=== PATIENT | female | born 1990 | race Caucasian/White ===

== ENCOUNTER 2020-08-11 09:56 | Emergency (ER) | payer OTHER ==
[~2020-08-11] VITALS: Ht 172.7 cm; Wt 77.3 kg
[~2020-08-11 09:56] MED LIST: AMOXICILLIN 50500 MG PO; BIRTH CONTROL; NO HOME MEDICATIONS
[2020-08-11 09:59] VITALS: TEMP 96.4
[2020-08-11 10:33] LABS: COLLECTION METHOD CLEAN CATCH
[2020-08-11 10:37] LABS: BASO % 0.4 % (0.0-2.0); EOS # 0.1 (0.0-0.7); EOS % 0.7 % (0-4.0); GRAN # 7.2 (1.4-6.5); GRAN % 71.2 % (42.2-75.2); HEMATOCRIT 41.2 % (37.0-47.0); HEMOGLOBIN 14.2 g/dl (12.5-16.0); LYMPH # 2.2 (1.2-3.4); LYMPH % 21.4 % (20.0-51.0); MEAN CELL VOLUME 92 fl (80.0-100.0); MEAN CORPUSCULAR HEMOGLOBIN 32 pg (27.0-31.0); MEAN CORPUSCULAR HGB CONC 35 g/dl (33.0-37.0); MEAN PLATELET VOLUME 10.3 fl (7.4-10.4); MONO # 0.6 (0.1-0.6); PLATELET COUNT 247 K/mm3 (130-400); RED BLOOD COUNT 4.48 M/mm3 (4.10-5.30)
[2020-08-11 10:50] LABS: ALANINE AMINOTRANSFERASE 13 U/L (4-34); ALBUMIN 4.9 gm/dL (3.5-5.0); ALKALINE PHOSPHATASE 99 U/L (50-136); ANION GAP 14 mmol/L (7-16); AST,SGOT 30 U/L (15-37); BILIRUBIN,TOTAL 1.1 mg/dL (0.0-1.0); BLOOD UREA NITROGEN 17 mg/dL (7-17); CALCIUM 9.4 mg/dL (8.4-10.2); CARBON DIOXIDE 21 mmol/L (22-30); CHLORIDE 102 mmol/L (98-107); CREATININE, serum 0.93 (0.52-1.25); GLUCOSE 155 mg/dL (74-106); LIPASE 45 U/L (23-300); POTASSIUM 3.5 mmol/L (3.4-5.0); SODIUM 137 mmol/L (137-145); TOTAL PROTEIN 8.4 gm/dL (6.4-8.2)
[2020-08-11 10:57] LABS: MUCOUS Present /lpf; PH 6 (5-8); URINE APPEARANCE Hazy; URINE BACTERIA None Seen /hpf; URINE BILIRUBIN Negative (NEGATIVE); URINE BLOOD 3+ (NEGATIVE); URINE COLOR Yellow; URINE GLUCOSE Negative (NEGATIVE); URINE KETONE 1+ (NEGATIVE); URINE LEUKOCYTE ESTERASE Negative (NEGATIVE); URINE NITRATE Negative (NEGATIVE); URINE PROTEIN(semi-quant) 1+ (NEGATIVE); URINE RBC >50 /hpf
[2020-08-11 10:59] LABS: C-REACTIVE PROTEIN < 0.5 mg/dL (0.0-0.9)
[2020-08-11] MEDS ORDERED: NORCO 325 MG-51 TAB PO (12:22)
[2020-08-11] MEDS ORDERED: CEFTIN500 MG PO (12:22)
[2020-08-11] MEDS ORDERED: ZOFRAN ODT4 MG PO (12:22)
[2020-08-11 13:01] VITALS: BP 131/70; PULSE 66
== END 2020-08-11 12:45 | disposition home or self-care (01) ==
LOC: COL.ER 09:56
PROVIDERS: Emergency Medicine
DX: N20.2 Calculus of kidney with calculus of ureter (principal); Z32.02 Encounter for pregnancy test, result negative
CPT/HCPCS: J0696; J1170; J2550; J7030; Q9967